=== PATIENT | female | born 1945 | race Caucasian/White ===

== ENCOUNTER → 2023-04-18 12:45 | Outpatient (REF) | payer MEDICARE, SELFPAY | LOC: HWWDC 12:45 | PROVIDERS: ATTENDING PHYSICIAN Family Medicine | DX: Z12.31 Encounter for screening mammogram for malignant neoplasm of breast (principal) | CPT/HCPCS: 77063; 77067 ==

== ENCOUNTER 2023-06-21 14:05 | Emergency (ER) | payer MEDICARE, SELFPAY ==
[2023-06-21 14:09] VITALS: BP 157/80
[2023-06-21 14:38] LABS: % Eosinophils 2.2 % (0-6); % Immature Granulocytes 0.3 % (0-0.5); % Lymphocytes 19.9 % (20.5-51.1); % Monocytes 5.7 % (1.7-9.3); % Neutrophils 70.9 % (42.2-75.2); Absolute Basophils 0.1 10^3/uL (0-0.2); Absolute Eosinophils 0.2 10^3/uL (0-0.7); Absolute Lymphocytes 1.4 10^3/uL (1.2-3.4); Absolute Monocytes 0.4 10^3/uL (0.1-0.6); Absolute Neutrophils 4.8 10^3/uL (1.4-6.5); Hemoglobin 13.3 g/dL (12.0-16.0); Mean Corp Hgb Conc. 33.3 g/dL (33.0-37.0); Mean Corpuscular Hgb 32.6 pg (27.0-31.0); Mean Platelet Volume 9.6 fL (7.4-10.4); Nucleated Red Blood Cells % 0 %; Platelet Count 225 10^3/uL (130-400); Red Blood Cell Count 4.08 10^6/uL (4.20-5.40); Red Cell Dist. Width 13.1 % (11.5-14.5); White Blood Cell Count 6.8 10^3/uL (4.8-10.8)
[2023-06-21 14:48] LABS: ALT (SGPT) 20 U/L (0-35); AST (SGOT) 24 U/L (14-36); Albumin 4.4 g/dl (3.5-5.0); Alkaline Phosphatase 50 U/L (38-126); Blood Urea Nitrogen 26 mg/dl (7-17); Calcium 9.3 mg/dl (8.4-10.2); Carbon Dioxide 26 mmol/L (22-30); Chloride 104 mmol/L (98-107); Glucose 122 mg/dl (70-99); Potassium 4.2 mmol/L (3.5-5.1); Sodium 137 mmol/L (135-145); Total Bilirubin 1.1 mg/dl (0.2-1.3); Total Protein 6.6 g/dl (6.3-8.2); eGFR 52.08
[2023-06-21 14:52] LABS: Troponin I < 0.012 ng/ml
--- NOTE | 2023-06-21 15:04 | ED.GENMED ---
History of Present Illness
General
Chief Complaint: Chest Pain
Source: patient
Exam Limitations: none
Time Seen by Provider: 06/21/23 15:03
Travel History
Have you had any contact with someone who has COVID-19?: No
Do you have any symptoms of coronavirus? Fever > 100 degrees, chills, cough, shortness of breath, sore throat, loss of taste or smell, muscle aches, or headache?: No
History of Present Illness
History of Present Illness:
78-year-old female history of hyperlipidemia, GERD, hiatal hernia presenting with shortness of breath worse with exertion for the past few months. Patient denies any chest pain but reports 'chest fullness' which feels similar to previous hiatal
hernia/GERD. Patient states that she talked with her primary care doctor who recommended follow-up with [facility] and has an appointment in 1 month. Patient states that today when she is standing for a few minutes and her daughter's kitchen she
felt lightheaded and like she was going to have a syncopal episode. Patient reports 'eyes darkening' and states that symptoms lasted a few seconds before spontaneously resolving. Patient reports history of syncopal episodes multiple times for
which she has been evaluated and states that this feels similar. Patient denies any chest pain or shortness of breath at that time. Patient denies cough, fever, chills, or lower extremity swelling.
Phy Exam
Physical Exam
Physical Exam:
General: Alert, no acute distress
Head: NCAT
Eyes: clear conjunctiva
Neck: supple
Cardiac: regular rate and rhythm, no murmur
Lungs: clear to auscultation bilaterally. No wheezes, rales, or rhonchi. Speaking full unlabored sentences. No respiratory distress.
Abdomen: soft, nondistended nontender. No rebound or guarding.
MSK: no lower extremity edema bilaterally. No deformity
Skin: warm, dry
Neuro: Alert and oriented x3. no focal deficits
Scores
Heart Score for Chest Pain Patients
STEMI patient?: No
History: Slightly or Non-Suspicious
ECG: Normal
Age: >/= 65 years
Risk Factors: 1 or 2 Risk Factors
Troponin: </= Normal Limit
Heart Score for Chest Pain Patients: 3
Heart Score Risk: 2.5% MACE over next 6 weeks
Course
Orders/Labs/Results
Orders:
Orders
06/21/23 14:08
EKG [Electrocardiogram (*1)] Urgent
Reason for Study: Chest Pain
EKG- Treatment ONCE
06/21/23 14:22
Complete Blood Count/With Diff Urgent
Comprehensive Metabolic Panel Urgent
Troponin I Urgent
06/21/23 15:29
CXR2 [CR Chest - 2 Views ] Urgent
Comment:
Reason For Exam: sob
06/21/23 17:01
Troponin I Urgent
Abnormal Lab Results
06/21/23
14:22
RBC 4.08 L 10^6/uL
(4.20-5.40)
MCH 32.6 H pg
(27.0-31.0)
Lymphocytes % 19.9 L %
(20.5-51.1)
BUN 26 H mg/dl
(7-17)
Creatinine 1.1 H mg/dL
(0.6-1.0)
Glucose 122 H mg/dl
(70-99)
06/21/23 14:22
06/21/23 14:22
Vital Signs
Initial and Last Documented VS:
Initial Vital Signs
Temp Pulse Resp BP Pulse Ox
98.1 F 82 18 157/80 97
06/21/23 14:09 06/21/23 14:09 06/21/23 14:09 06/21/23 14:09 06/21/23 14:09
Last Documented Vital Signs
Temp Pulse Resp BP Pulse Ox
98.1 F 76 17 114/67 100
06/21/23 14:09 06/21/23 18:15 06/21/23 16:10 06/21/23 16:35 06/21/23 16:45
Comment
Comment:
Patient presents to the Emergency Department with ___shortness of breath for weeks
Number and Complexity of Problems Addressed at the Encounter
� Chronic conditions affecting care:
� Acute Exacerbation and/or Progression of Chronic Illness:
� Differential Diagnosis includes: NSTEMI, stable angina, pneumonia, chf
Amount and/or Complexity of Data to be Reviewed and Analyzed
� I performed an independent evaluation of and my interpretation is:
EKG: NSR at 78bpm with AR 130 QTc 424 no acute ischemic changes
CT:
Xrays: CXR shows no focal infiltrate or consolidation.
Laboratory Studies: troponin negative x2. hemoglobin 13.3 with no anemia. electrolytes within normal limits
Other:
� Review of other/old records reveals: nuclear stress test on 06/28/21 showed no significant CAD.
� Clinical information was obtained by an independent historian:
� Prescriptions/Medications Considered but not given:
� Further testing considered but not performed:
Risk of Complications and/or Morbidity or Mortality of Patient Management
� Social Determinants of health affecting care:
� Discussion with other providers (PCP, Hospitalists, Consultants, etc):
� Escalation of care including admission/observation vs risk of discharge considered: heart score 3. Patient has cardiology appointment in 1 month. Asymptomatic while in ER with vitals stable. Stable for discharge with cardiology follow up.
*Critical Care Note
Total Time (30-74mins, 75-104mins- exclusive of procedures): Not Applicable
ED Attending Note
-
Portions of this chart may have been created with voice recognition software.� Occasional wrong word or��sound alike� substitutions may have occurred due to the inherent limitations of voice recognition software.
Discharge Plan
Departure
Patient Disposition: Home (Routine Discharge)
Date of Disposition: 06/21/23
Time of Disposition: 18:22
Patient with high blood pressure during this ER visit?: No
Discharge Problem:
Exertional shortness of breath
Instructions: Shortness of Breath (Dyspnea) (DC), Chest Pain CBC Follow Up
Referrals:
Doni Jo MD [Non-Admitting Privileges] -
NONE,* [Active] -
Activity Restrictions/Additional Instructions:
Follow-up with cardiology as scheduled
Drink water, stay hydrated
Return to the emergency department for chest pain, leg swelling, fever or new/worsening symptoms
Interventions
Interventions:
*Risk Screen - Suicide Last Done: 06/21/23 14:09
*General Assessment Last Done: 06/21/23 15:56
*Neglect/Abuse Screening Last Done: 06/21/23 14:09
*ED COVID-19 Vaccine History Last Done: 06/21/23 14:09
*Nursing Disposition Last Done: 06/21/23 18:45
ED- Cardiac Assessment Last Done: 06/21/23 15:21
Discharge Date and Time
Discharge Date/Time: 06/21/23 18:46
Print Language: SPANISH
[2023-06-21 15:54] VITALS: BP 123/72
[2023-06-21 16:00] VITALS: BP 115/68
[2023-06-21 16:10] VITALS: BP 114/72
[2023-06-21 16:35] VITALS: BP 114/67
[2023-06-21 17:54] LABS: Troponin I < 0.012 ng/ml
== END 2023-06-21 18:46 | disposition home or self-care (01) ==
LOC: EMR 14:05
PROVIDERS: Student in an Organized Health Care Education/Training Program; EMERGENCY PHYSICIAN Emergency Medicine; FAMILY PHYSICIAN Family Medicine
DX: R06.02 Shortness of breath (principal); R42 Dizziness and giddiness; R07.89 Other chest pain; K21.9 Gastro-esophageal reflux disease without esophagitis; K44.9 Diaphragmatic hernia without obstruction or gangrene; E78.5 Hyperlipidemia, unspecified; Z88.0 Allergy status to penicillin
CPT/HCPCS: 99283; 71046; 80053; 84484; 85025; 93005

== ENCOUNTER → 2023-08-23 06:40 | Outpatient (REF) | payer MEDICARE, SELFPAY | LOC: DHCBC/DCA 06:40 | PROVIDERS: ATTENDING PHYSICIAN Internal Medicine Cardiovascular Disease; FAMILY PHYSICIAN Family Medicine | DX: R07.89 Other chest pain (principal) | CPT/HCPCS: 78452; 93017; A9500 ==

== ENCOUNTER → 2024-04-23 07:53 | Outpatient (REF) | payer MEDICARE, SELFPAY | LOC: HWWDC 07:53 | PROVIDERS: ATTENDING PHYSICIAN Family Medicine | DX: M81.0 Age-related osteoporosis without current pathological fracture (principal); Z12.31 Encounter for screening mammogram for malignant neoplasm of breast | CPT/HCPCS: 77063; 77067; 77080 ==

== ENCOUNTER 2024-06-15 08:12 | Emergency (ER) | payer MEDICARE, SELFPAY ==
[2024-06-15 08:15] VITALS: BP 137/76
--- NOTE | 2024-06-15 09:41 | ED.MUSCINJ ---
HPI-Injury
General
Chief Complaint: Musculo-Skeletal Complaint
Source: patient
Exam Limitations: none
Time Seen by Provider: 06/15/24 09:05
Nursing documentation reviewed up to this point in time: agreed with
History of Present Illness-Injury
Initial Injury comments:
79 yo female presents emergency department complaining of right upper back pain that began after picking up a bag on morning. She then went to [place], where the pain continued taking ibuprofen. But she came back this morning from
[place] it was still hurting she came to the emergency department. No chest pain or shortness of breath.
Past History
Past History
ED Past Medical History: GERD and Hypercholesterolemia
ED Past Surgical History: Gynecological (Hysterectomy)
Social History
Tobacco: Non-smoker
Alcohol: None
Drug: None
Review of Systems
Review of Systems
Allergies reviewed?: Yes
All Other Systems: Not applicable
Constitutional: Reports no symptoms
EENT: Reports no symptoms
Respiratory: Reports no symptoms
Cardiac: Reports no symptoms
ABD/GI: Reports no symptoms
: Reports no symptoms
Musculoskeletal: Reports back pain
Skin: Reports no symptoms
Neurological: Reports no symptoms
Endocrine: Reports no symptoms
Hematologic/Lymphatic: Reports no symptoms
Psychiatric: Reports no symptoms
Phy Exam
Physical Exam
Physical Exam:
Physical Exam
General: no apparent distress, not acutely ill
Neck: supple. no meningeal signs. normal posterior pharynx
Heart: s1/s2 regular rate and rhythm, no murmur. equal radial
pulses.
HEENT: Pupils equal round reactive to light, EOMI
Lungs: no acute respiratory distress. clear bilaterally
Abdomen: normal bowel sounds. not tender. no CVAT
back: upper lateral soft tissue tenderness right of T5/6, no step off or midline tenderness
Neuro: alert and oriented. no focal neurological deficits cranial nerves II through XII intact
Skin: no rash
Psychiatric: well kept. interactive and cooperative
Extremities: no edema. no calf tenderness. negative homans. good distal pulses
Injury Course
Orders/Labs/Results
Orders:
Orders
06/15/24 09:39
Ketorolac [Toradol] 15 mg IM NOW STA
CR Thoracic Spine 3 Views Urgent
Reason For Exam: right upper back pain
MDM/Problems Addressed
Differential Diagnosis Includes:
Upper back strain, shoulder strain, pneumothorax
MDM/Problems Addressed:
79-year-old female with right upper back strain, no signs of pneumothorax. No signs of fracture. Degenerative changes seen on thoracic x-ray. Do not suspect dissection. Equal pulses. Tender to palpation on thoracic paraspinal musculature.
Discussed results with patient and her . They understood, but he began cursing about the system. He will follow-up with orthopedics. Return precautions given.
Chronic conditions affecting care: HTN
*Radiology
Radiology exam reviewed: radiology read reviewed (Thoracic spine x-ray degenerative changes, no other acute findings)
*Pulse Oximetry
Patient hypoxic: no
*Critical Care Note
Total Time (30-74mins, 75-104mins- exclusive of procedures): Not Applicable
Data Reviewed
Further Testing Considered But Not Given:
CT and MRI not indicated at this time
Patient Management
Social determinants of health affecting care: Living situation and Strong social support
Escalation/DeEscalation of care consider admission/obs:
Admit not indicated
ED Attending Note
-
Portions of this chart may have been created with voice recognition software.� Occasional wrong word or��sound alike� substitutions may have occurred due to the inherent limitations of voice recognition software.
Discharge Plan
Departure
Patient Disposition: Home (Routine Discharge)
Date of Disposition: 06/15/24
Time of Disposition: 11:43
Patient with high blood pressure during this ER visit?: Yes
Condition: Good
Discharge Problem:
Upper back pain on right side
Instructions: Upper Back Pain ED, BLOOD PRESSURE
Prescriptions:
New
gabapentin 300 mg capsule
300 mg PO TID PRN (Reason: back pain) Qty: 20 0RF
Referrals:
Cameron Montoya DO [Non-Admitting Privileges] - Call in 1-3 days for appt
Manisha Logan MD [Family Provider] -
Interventions
Interventions:
*Risk Screen - Suicide Last Done: 06/15/24 08:15
*Neglect/Abuse Screening Last Done: 06/15/24 08:15
Discharge Date and Time
Print Language: DANISH
[2024-06-15] MEDS: TORADOL 15 MG IM (09:46)
[2024-06-15] MEDS: NEURONTIN 300 MG PO (11:42)
[2024-06-15 11:43] VITALS: BP 169/69
== END 2024-06-15 11:50 | disposition home or self-care (01) ==
LOC: EMR 08:12
PROVIDERS: EMERGENCY PHYSICIAN Emergency Medicine; FAMILY PHYSICIAN Family Medicine
DX: S29.012A Strain of muscle and tendon of back wall of thorax, initial encounter (principal); X58.XXXA Exposure to other specified factors, initial encounter; E78.00 Pure hypercholesterolemia, unspecified; I10 Essential (primary) hypertension; Z90.710 Acquired absence of both cervix and uterus
CPT/HCPCS: 96372; 99284; 72072

== ENCOUNTER 2024-06-17 12:20 | Emergency (ER) | payer MEDICARE, SELFPAY ==
[2024-06-17 12:27] VITALS: BP 151/77
[2024-06-17 12:31] VITALS: BMI 22.8
[2024-06-17 12:59] LABS: % Basophils 1.1 % (0-2); % Eosinophils 2.3 % (0-6); % Immature Granulocytes 0.3 % (0-0.5); % Lymphocytes 27.7 % (20.5-51.1); % Monocytes 6.6 % (1.7-9.3); Absolute Basophils 0.1 10^3/uL (0-0.2); Absolute Eosinophils 0.2 10^3/uL (0-0.7); Absolute Lymphocytes 1.8 10^3/uL (1.2-3.4); Absolute Monocytes 0.4 10^3/uL (0.1-0.6); Hematocrit 37.9 % (37.0-47.0); Mean Corp Hgb Conc. 34.3 g/dL (33.0-37.0); Mean Corpuscular Hgb 32.7 pg (27.0-31.0); Mean Corpuscular Volume 95.2 fL (81.0-99.0); Mean Platelet Volume 9.6 fL (7.4-10.4); Nucleated Red Blood Cells % 0 %; Platelet Count 195 10^3/uL (130-400); Red Blood Cell Count 3.98 10^6/uL (4.20-5.40); Red Cell Dist. Width 13.2 % (11.5-14.5); White Blood Cell Count 6.5 10^3/uL (4.8-10.8)
--- NOTE | 2024-06-17 12:59 | ED.GENMED ---
History of Present Illness
General
Chief Complaint: Chest Pain
Source: patient
Exam Limitations: none
Time Seen by Provider: 06/17/24 12:36
Nursing documentation reviewed up to this point in time: agreed with
History of Present Illness
History of Present Illness:
79-year-old female very active, history of reflux high cholesterol nondrinker non-smoker no personal history of CAD presents with sharp right-sided chest pain described as muscular onset just prior to arrival no recent heavy lifting although she had
some back pain recently during a trip to the [facility] no calf pain, she had had no hemoptysis no nausea no vomiting pain did not go to her jaw on her back today, no rash no fever chill
Past History
Past History
ED Past Medical History: GERD and Hypercholesterolemia
ED Past Surgical History: Gynecological (Hysterectomy)
Social History
Tobacco: Non-smoker
Alcohol: None
Drug: None
Living: with family
Employment: Employed
Family History
Family History: CAD
Review of Systems
Review of Systems
All Other Systems: Not applicable
Phy Exam
Physical Exam
Physical Exam:
Physical Exam
General: no apparent distress, not acutely ill
Neck: No jaundice
Heart: s1/s2 regular rate and rhythm, no murmur. equal radial pulses.
Lungs: no acute respiratory distress. clear bilaterally
Abdomen: Nontender
Neuro: alert and oriented. no focal neurological deficits
Skin: no rash
Psychiatric: well kept. interactive and cooperative
Extremities: no edema. no calf tenderness
Scores
Heart Score for Chest Pain Patients
STEMI patient?: No
History: Slightly or Non-Suspicious
ECG: Normal
Age: >/= 65 years
Risk Factors: 1 or 2 Risk Factors
Troponin: </= Normal Limit
Heart Score for Chest Pain Patients: 3
Heart Score Risk: 2.5% MACE over next 6 weeks
Course
Orders/Labs/Results
Orders:
Orders
06/17/24 12:26
EKG [Electrocardiogram (*1)] Urgent
Reason for Study: Chest Pain
EKG- Treatment ONCE
06/17/24 12:42
Complete Blood Count/With Diff Urgent
Comprehensive Metabolic Panel Urgent
Lipase Urgent
Comment: ADD
Troponin I Urgent
06/17/24 12:45
D-Dimer Urgent
06/17/24 12:51
CR Chest - 2 Views Urgent
Comment:
Reason For Exam: cp
06/17/24 12:52
Add On- LAB Urgent
Tests Added?: lipase
06/17/24 14:41
Oxycodone/Acetaminophen [Percocet 5/325] 1 tablet PO NOW STA
Abnormal Lab Results
06/17/24
12:42
RBC 3.98 L 10^6/uL
(4.20-5.40)
MCH 32.7 H pg
(27.0-31.0)
Chloride 108 H mmol/L
(98-107)
BUN 19 H mg/dl
(7-17)
Glucose 101 H mg/dl
(70-99)
Total Protein 5.8 L g/dl
(6.3-8.2)
06/17/24 12:42
06/17/24 12:42
Vital Signs
Initial and Last Documented VS:
Initial Vital Signs
Temp Pulse Resp BP Pulse Ox
98.6 F 66 17 151/77 97
06/17/24 12:27 06/17/24 12:27 06/17/24 12:27 06/17/24 12:27 06/17/24 12:27
Last Documented Vital Signs
Temp Pulse Resp BP Pulse Ox
98.6 F 62 15 142/69 99
06/17/24 12:27 06/17/24 13:45 06/17/24 13:45 06/17/24 13:00 06/17/24 13:45
MDM/Problems Addressed
Differential Diagnosis Includes:
Pleurisy pneumothorax pulmonary embolism pancreatitis biliary colic ACS
MDM/Problems Addressed:
Chest pain
Chronic conditions affecting care:
. Lipid
Acute Exacerbation and/or Progression of Chronic Illness:
GERD
*Radiology
Radiology exam reviewed: radiology read reviewed
*Pulse Oximetry
Patient hypoxic: no
*EKG
Interpreted by ED Provider?: Yes
Interpretation: normal
Comparison EKG: no comparison EKG present
Heart Rate: 70
Rate: normal
Rhythm: sinus
Ischemia: no ischemia
*Research [employer] Interpretation
Interpretation: normal
Heart Rate: 70
Rhythm: sinus
*Critical Care Note
Total Time (30-74mins, 75-104mins- exclusive of procedures): Not Applicable
Update Note
Update Note:
Update history and physical appears atypical for ACS, EKG nonischemic undetectable troponin does have a family history of CAD, will check chest x-ray high-sensitivity D-dimer lipase
2:40 PM labs no chest x-ray report noted
Patient peers comfortable, apparently she is in the ER recently as she had an appointment today to see Dr. Montoya jackerman at 2 PM missed the appointment message sent to Dr. Montoay to get some follow-up, will try a short course of Percocet
patient prefers not to have any steroids due to acid indigestion
ED Attending Note
-
Portions of this chart may have been created with voice recognition software.� Occasional wrong word or��sound alike� substitutions may have occurred due to the inherent limitations of voice recognition software.
Discharge Plan
Departure
Patient Disposition: Home (Routine Discharge)
Date of Disposition: 06/17/24
Time of Disposition: 14:40
Patient with high blood pressure during this ER visit?: No
Condition: Good
Discharge Problem:
Right sided chest pain
Instructions: Chest Pain PCP Follow Up
Prescriptions:
No Action
gabapentin 300 mg capsule
300 mg PO TID PRN (Reason: back pain) Qty: 20 0RF
Referrals:
Manisha Logan MD [Family Provider] - Next open appointment
Cameron Montoya DO [Non-Admitting Privileges] - Next open appointment
Activity Restrictions/Additional Instructions:
Ibuprofen 400 mg every 6 hours on a full stomach
Oxycodone every 6-8 hours as needed for pain
Interventions
Interventions:
*Risk Screen - Suicide Last Done: 06/17/24 13:36
*General Assessment Last Done: 06/17/24 13:36
*ED- Fall Risk Assessment Last Done: 06/17/24 13:36
*ED COVID-19 Vaccine History Last Done: 06/17/24 13:36
Discharge Date and Time
Print Language: SAO TOMEAN
[2024-06-17 13:00] VITALS: BP 142/69
[2024-06-17 13:16] LABS: ALT (SGPT) 16 U/L (0-35); AST (SGOT) 21 U/L (14-36); Albumin 3.8 g/dl (3.5-5.0); Alkaline Phosphatase 48 U/L (38-126); Blood Urea Nitrogen 19 mg/dl (7-17); Calcium 9.5 mg/dl (8.4-10.2); Carbon Dioxide 27 mmol/L (22-30); Chloride 108 mmol/L (98-107); Estimated Creatinine Clearance 49 ml/min; Glucose 101 mg/dl (70-99); Potassium 4.5 mmol/L (3.5-5.1); Sodium 139 mmol/L (135-145); Total Bilirubin 0.9 mg/dl (0.2-1.3); Total Protein 5.8 g/dl (6.3-8.2); eGFR > 60.00
[2024-06-17 13:24] LABS: Troponin I < 0.012 ng/ml
[2024-06-17 13:35] LABS: Lipase 77 U/L (23-300)
[2024-06-17 14:17] LABS: D-Dimer < 0.27 ug/mlFEU (0.00-0.50)
[2024-06-17 14:41] VITALS: BP 134/71
[2024-06-17] MEDS: PERCOCET 5/325 1 TABLET PO (14:59)
[2024-06-17 15:00] VITALS: BP 130/79
[2024-06-17 15:49] VITALS: BP 130/79
== END 2024-06-17 15:57 | disposition home or self-care (01) ==
LOC: EMR 12:20
PROVIDERS: EMERGENCY PHYSICIAN Emergency Medicine; FAMILY PHYSICIAN Family Medicine
DX: R07.89 Other chest pain (principal); K21.9 Gastro-esophageal reflux disease without esophagitis; E78.00 Pure hypercholesterolemia, unspecified; Z88.0 Allergy status to penicillin
CPT/HCPCS: 99283; 71046; 80053; 83690; 84484; 85025; 85379; 93005